=== PATIENT | female | born 1960 | race Caucasian/White ===

== ENCOUNTER → 2017-07-27 | Outpatient (CLI) | payer MEDICARE ==
[2013-06-02 01:02] VITALS: BP 133/83
[~2017-07-27] MED LIST: LEVOTHYROXIN0.025 MG; LISINOPRIL10 MG PO; LITHIUM 30300 MG/CAP PO; SEROQUEL100 MG PO
[2017-07-27 15:55] LABS: ALBUMIN 4.1 g/dL (3.5-5.0); CALCIUM 9.6 mg/dL (8.4-10.2); POTASSIUM 5.2 mmol/L (3.6-5.0); TOTAL BILIRUBIN 0.5 mg/dL (0.2-1.3); TOTAL PROTEIN 7.3 g/dL (6.3-8.2)
[2017-07-27 16:00] LABS: BASO # 0.1 (0.02-0.10); EOS # 0.5 (0.04-0.40); EOS % 5.1 % (1.0-5.0); HEMATOCRIT 39.3 % (37.0-47.0); HEMOGLOBIN 11.9 g/dL (12.5-16.0); LYMPH# 2.2 (1.50-4.00); MEAN CELL VOLUME 95 fl (78-100); MEAN CORPUSCULAR HEMOGLOBIN 29 pg (27-31); MEAN CORPUSCULAR HGB CONC 30 g/dL (33-37); MEAN PLATELET VOLUME 9.2 fl (7.4-10.4); MONO # 0.7 (0.20-0.80); NEU # 5.4 (1.40-6.50); PLATELET COUNT 404 K/mm3 (130-400); RED BLOOD COUNT 4.16 M/mm3 (4.10-5.30); RED CELL DISTRIBUTION WIDTH 12.8 % (11.5-14.5)
== END ==
LOC: LAB 14:56
PROVIDERS: Nurse Practitioner Family
DX: Z01.419 Encounter for gynecological examination (general) (routine) without abnormal findings (principal); E78.2 Mixed hyperlipidemia; Z13.220 Encounter for screening for lipoid disorders; F31.81 Bipolar II disorder; E66.01 Morbid (severe) obesity due to excess calories

== ENCOUNTER → 2019-09-02 | Outpatient (CLI) | payer MEDICARE ==
[2013-06-02 01:02] VITALS: BP 133/83
[2019-09-02 14:40] LABS: EOS # 0.5 (0.04-0.40); EOS % 6.8 % (1.0-5.0); HEMATOCRIT 40.6 % (37.0-47.0); HEMOGLOBIN 12.2 g/dL (12.5-16.0); LYMPH# 1.6 (1.50-4.00); MEAN CELL VOLUME 89 fl (78-100); MEAN CORPUSCULAR HEMOGLOBIN 27 pg (27-31); MEAN CORPUSCULAR HGB CONC 30 g/dL (33-37); MEAN PLATELET VOLUME 8.7 fl (7.4-10.4); MONO # 0.5 (0.20-0.80); NEU # 4.2 (1.40-6.50); PLATELET COUNT 309 K/mm3 (130-400); RED BLOOD COUNT 4.59 M/mm3 (4.10-5.30); RED CELL DISTRIBUTION WIDTH 14.5 % (11.5-14.5); WHITE BLOOD COUNT 6.8 K/mm3 (4.8-10.8)
[2019-09-02 14:50] LABS: ALBUMIN 4.3 g/dL (3.5-5.0); POTASSIUM 4.5 mmol/L (3.5-5.1)
[2019-09-02 14:51] LABS: CALCIUM 9.2 mg/dL (8.3-10.5)
[2019-09-02 14:52] LABS: TOTAL PROTEIN 6.9 g/dL (6.4-8.3)
[2019-09-02 14:54] LABS: TOTAL BILIRUBIN 0.4 mg/dL (0.2-1.2)
== END ==
LOC: LAB 14:21
PROVIDERS: Family Medicine
DX: Z00.00 Encounter for general adult medical examination without abnormal findings (principal); E78.5 Hyperlipidemia, unspecified; R53.83 Other fatigue; Z79.899 Other long term (current) drug therapy

== ENCOUNTER → 2019-09-13 | Outpatient (CLI) | payer MEDICARE ==
[2013-06-02 01:02] VITALS: BP 133/83
== END ==
LOC: LAB 15:03
DX: Z51.81 Encounter for therapeutic drug level monitoring (principal); Z79.899 Other long term (current) drug therapy

== ENCOUNTER → 2019-09-22 | Outpatient (CLI) | payer MEDICARE ==
[2013-06-02 01:02] VITALS: BP 133/83
== END ==
LOC: CARDLAB → CARDREHAB 13:10
DX: R07.9 Chest pain, unspecified (principal)

== ENCOUNTER → 2019-09-27 | Outpatient (CLI) | payer MEDICARE ==
[2013-06-02 01:02] VITALS: BP 133/83
== END ==
LOC: MAMMO 12:43
DX: Z12.31 Encounter for screening mammogram for malignant neoplasm of breast (principal)

== ENCOUNTER → 2021-04-29 | Outpatient (CLI) | payer MEDICARE | LOC: LAB 11:34 | DX: F31.9 Bipolar disorder, unspecified (principal) ==

== ENCOUNTER → 2021-06-29 | Outpatient (CLI) | payer MEDICARE | LOC: LAB 09:50 | DX: N39.0 Urinary tract infection, site not specified (principal) ==

== ENCOUNTER → 2022-03-10 | Outpatient (CLI) | payer MEDICARE ==
[~2022-03-10] MED LIST changes: +ATIVAN1 M1 PO; +KAPSPARGO SPRIN25 MG PO; +LASIX40 M1 PO; +PRILOSEC 20MG20 MG PO; +SEROQUEL400 MG PO; +TORSEMIDE20 M1 PO; +ZOCOR20 M1 PO
[2022-03-10 17:15] LABS: BASO # 0.06 K/mm3 (0.02-0.10); EOS # 0.31 K/mm3 (0.04-0.40); EOS % 3.6 % (1.0-5.0); HEMOGLOBIN 12.4 g/dL (12.5-16.0); LYMPH# 2.11 K/mm3 (1.50-4.00); MEAN CELL VOLUME 93 fl (78-100); MEAN CORPUSCULAR HEMOGLOBIN 29 pg (27-31); MEAN CORPUSCULAR HGB CONC 31 g/dL (33-37); MEAN PLATELET VOLUME 8.5 fl (7.4-10.4); MONO # 0.62 K/mm3 (0.20-0.80); NEU # 5.59 K/mm3 (1.40-6.50); PLATELET COUNT 296 K/mm3 (130-400); RED BLOOD COUNT 4.32 M/mm3 (4.10-5.30); RED CELL DISTRIBUTION WIDTH 13.2 % (11.5-14.5); WHITE BLOOD COUNT 8.7 K/mm3 (4.8-10.8)
[2022-03-10 17:26] LABS: ALBUMIN 4.4 g/dL (3.5-5.0); POTASSIUM 3.9 mmol/L (3.5-5.1)
[2022-03-10 17:27] LABS: CALCIUM 9.1 mg/dL (8.3-10.5)
[2022-03-10 17:29] LABS: TOTAL PROTEIN 7.1 g/dL (6.4-8.3)
[2022-03-10 17:31] LABS: TOTAL BILIRUBIN 0.4 mg/dL (0.2-1.2)
[2022-03-10 17:47] LABS: PROTHROMBIN TIME 9.5 SECONDS (9.0-12.0)
[2022-03-10 17:48] LABS: D-DIMER 0.35 mg/L FEU (0.15-0.50)
[2022-03-11 16:30] LABS: CORTISOL RANDOM 3 ug/dL (3-20)
== END ==
LOC: LAB 16:54
PROVIDERS: Family Medicine
DX: Z00.00 Encounter for general adult medical examination without abnormal findings (principal); Z51.81 Encounter for therapeutic drug level monitoring; E78.5 Hyperlipidemia, unspecified; F31.9 Bipolar disorder, unspecified; K21.9 Gastro-esophageal reflux disease without esophagitis; F41.1 Generalized anxiety disorder; J45.50 Severe persistent asthma, uncomplicated; E66.9 Obesity, unspecified; M19.90 Unspecified osteoarthritis, unspecified site; G47.30 Sleep apnea, unspecified; M62.830 Muscle spasm of back; E55.9 Vitamin D deficiency, unspecified; R58 Hemorrhage, not elsewhere classified

== ENCOUNTER 2022-03-31 15:59 | Observation (INO) | payer MEDICARE ==
[~2022-03-31] VITALS: Ht 165.1 cm; Wt 131.4 kg
[~2022-03-31 15:59] MED LIST changes: -ATIVAN1 M1 PO; -KAPSPARGO SPRIN25 MG PO; -LASIX40 M1 PO; -PRILOSEC 20MG20 MG PO; -SEROQUEL400 MG PO; -TORSEMIDE20 M1 PO; -ZOCOR20 M1 PO
[2022-03-31] MEDS ORDERED: SEROQUEL400 MG PO (17:04)
[2022-03-31] MEDS ORDERED: LASIX40 M1 PO (17:04)
[2022-03-31] MEDS ORDERED: KAPSPARGO SPRIN25 MG PO (17:05)
[2022-03-31] MEDS ORDERED: ATIVAN1 M1 PO (17:05)
[2022-03-31] MEDS ORDERED: ZOCOR20 M1 PO (17:06)
[2022-03-31] MEDS ORDERED: TORSEMIDE20 M1 PO (17:10)
[2022-03-31] MEDS ORDERED: PRILOSEC 20MG20 MG PO (17:12)
[2022-03-31 17:31] LABS: BASO # 0.04 K/mm3 (0.02-0.10); EOS # 0.08 K/mm3 (0.04-0.40); EOS % 0.8 % (1.0-5.0); HEMATOCRIT 38.6 % (37.0-47.0); LYMPH# 1.78 K/mm3 (1.50-4.00); MEAN CELL VOLUME 94 fl (78-100); MEAN CORPUSCULAR HEMOGLOBIN 29 pg (27-31); MEAN CORPUSCULAR HGB CONC 31 g/dL (33-37); MEAN PLATELET VOLUME 8.7 fl (7.4-10.4); MONO # 0.95 K/mm3 (0.20-0.80); NEU # 6.99 K/mm3 (1.40-6.50); PLATELET COUNT 310 K/mm3 (130-400); RED BLOOD COUNT 4.09 M/mm3 (4.10-5.30); RED CELL DISTRIBUTION WIDTH 13.9 % (11.5-14.5); WHITE BLOOD COUNT 9.9 K/mm3 (4.8-10.8)
[2022-03-31 17:34] VITALS: BP 164/97
[2022-03-31 17:41] LABS: ALBUMIN 4.3 g/dL (3.5-5.0)
[2022-03-31 17:42] LABS: SODIUM 135 mmol/L (136-145)
[2022-03-31 17:43] LABS: CALCIUM 9.4 mg/dL (8.3-10.5)
[2022-03-31 17:44] LABS: GLUCOSE 87 mg/dL (65-105); TOTAL PROTEIN 6.8 g/dL (6.4-8.3)
[2022-03-31 17:45] LABS: CARBON DIOXIDE 20 mmol/L (22-29)
[2022-03-31 17:46] LABS: TOTAL BILIRUBIN 0.7 mg/dL (0.2-1.2)
[2022-03-31 17:49] LABS: AST-SGOT 43 U/L (5-34)
[2022-03-31 17:51] LABS: ALT/SGPT 31 U/L (0-55)
[2022-03-31 17:58] LABS: TROPONIN-I < 0.030 ng/mL (<0.030)
[2022-03-31 18:14] LABS: D-DIMER 0.29 mg/L FEU (0.15-0.50)
[2022-03-31 18:15] VITALS: BP 164/97
[2022-03-31 20:13] LABS: URINE APPEARANCE CLEAR; URINE COLOR YELLOW
[2022-03-31 20:14] LABS: URINE BILIRUBIN NEGATIVE (NEGATIVE); URINE GLUCOSE NEGATIVE (NEGATIVE); URINE KETONE 1+ (NEGATIVE); URINE PROTEIN(semi-quant) NEGATIVE (NEGATIVE)
[2022-03-31 20:15] LABS: URINE BLOOD NEGATIVE (NEGATIVE); URINE LEUKOCYTE ESTERASE 1+ (NEGATIVE); URINE NITRATE NEGATIVE (NEGATIVE); URINE UROBILINOGEN NORMAL (NORMAL); URINE WBC 0 /hpf (0-3)
[2022-03-31 20:16] LABS: URINE MUCUS PRESENT (NOT PRESENT)
[2022-04-01 05:27] VITALS: BP 143/85
[2022-04-01 08:25] LABS: BASO # 0.04 K/mm3 (0.02-0.10); EOS # 0.13 K/mm3 (0.04-0.40); EOS % 1.5 % (1.0-5.0); HEMATOCRIT 39.8 % (37.0-47.0); HEMOGLOBIN 12.4 g/dL (12.5-16.0); LYMPH# 1.87 K/mm3 (1.50-4.00); MEAN CELL VOLUME 94 fl (78-100); MEAN CORPUSCULAR HEMOGLOBIN 29 pg (27-31); MEAN CORPUSCULAR HGB CONC 31 g/dL (33-37); MEAN PLATELET VOLUME 8.5 fl (7.4-10.4); MONO # 0.79 K/mm3 (0.20-0.80); NEU # 5.94 K/mm3 (1.40-6.50); PLATELET COUNT 327 K/mm3 (130-400); RED BLOOD COUNT 4.23 M/mm3 (4.10-5.30); RED CELL DISTRIBUTION WIDTH 13.7 % (11.5-14.5); WHITE BLOOD COUNT 8.8 K/mm3 (4.8-10.8)
[2022-04-01 08:38] LABS: ALBUMIN 4.4 g/dL (3.5-5.0); POTASSIUM 3.5 mmol/L (3.5-5.1)
[2022-04-01 08:39] LABS: CALCIUM 9.5 mg/dL (8.3-10.5)
[2022-04-01 08:41] LABS: TOTAL PROTEIN 6.9 g/dL (6.4-8.3)
[2022-04-01 08:42] LABS: TOTAL BILIRUBIN 0.7 mg/dL (0.2-1.2)
== END 2022-04-01 14:28 | disposition home or self-care (01) ==
LOC: MED/SURG 15:59 → EDSTATUS 20:19 → MED/SURG 04-01 14:28
PROVIDERS: Family Medicine; ADMIT Nurse Practitioner
DX: R60.9 Edema, unspecified (principal); E87.1 Hypo-osmolality and hyponatremia; N17.9 Acute kidney failure, unspecified; K21.9 Gastro-esophageal reflux disease without esophagitis; J45.909 Unspecified asthma, uncomplicated; M19.90 Unspecified osteoarthritis, unspecified site; G47.33 Obstructive sleep apnea (adult) (pediatric)
CPT/HCPCS: G0378; G0379; J1650